=== PATIENT | male | born 1955 | race Caucasian/White ===

== ENCOUNTER 2018-03-25 15:55 | Emergency (ER) | payer OTHER, SELFPAY ==
[2018-03-25 15:59] VITALS: BP 108/65; PULSE 115; RESP 24; TEMP 37.3; O2SAT 98; BMI 27.1
--- NOTE | 2018-03-25 16:08 | DI.RAD.S_ITS ---
PROCEDURE: XR CHEST 2V INDICATIONS: fever, recent fractured ribs on right side. TECHNIQUE: 2 views of the chest were acquired. COMPARISON: None. FINDINGS: Surgical changes and devices: None. Lungs and pleura: No pleural effusions or pneumothorax. Lungs are clear. Mediastinum: Mediastinal contours are normal. Heart size is normal. Bones and chest wall: There are fractures of the right fifth, sixth and seventh ribs. No suspicious bony abnormalities. Soft tissues appear unremarkable. IMPRESSION: 1. Multiple right-sided rib fractures. 2. No pneumothorax or evidence of pneumonia. Dictated by: Serg Coffman M.D. on 03/25/2018 at 16:30 Approved by: Segr Coffman M.D. on 03/25/2018 at 16:32
[2018-03-25] MEDS: SODIUM CHLORIDE 0.9% 1,000 ML 1000 ML IV (16:30)
[2018-03-25 16:38] LABS: Add Manual Diff / Slide Review NO; Basophils Percent Auto 0.5 % (0-2); Eosinophils Percent Auto 0.3 % (2-4); Hematocrit 39.3 % (41-53); Hemoglobin 13.1 g/dL (13.5-17.5); Lymphocytes Percent Auto 7.3 % (25-40); Mean Corpuscular HGB Conc 33.2 % (30-36); Mean Corpuscular Hemoglobin 27.2 PG (26-34); Mean Corpuscular Volume 81.9 fL (80-100); Monocytes Percent Auto 6.8 % (3-14); Neutrophils Absolute Auto 9700 /uL (3000-5900); Neutrophils Percent Auto 85.1 % (50-75); Platelet Count 203 X10^3/uL (150-400); Red Cell Distribution Width 15.1 % (11.6-14.8); White Blood Cell Count 11.4 X10^3/uL (4.5-11.0)
[2018-03-25 16:42] LABS: INR 1.2 (0.9-1.3); Prothrombin Time 12.5 SECONDS (10.1-12.7)
[2018-03-25 16:44] LABS: PTT Partial Thromboplastin Tim 37 SECONDS (26.4-36.2)
[2018-03-25 16:47] LABS: Alanine Aminotransferase 31 IU/L (21-72); Albumin 4.6 g/dL (3.5-5.0); Albumin Globulin Ratio 1.6 (1.0-2.8); Alkaline Phosphatase 80 U/L (38-126); Aspartate Aminotransferase 19 IU/L (17-59); BUN Creatinine Ratio 25.7 (6-22); Bilirubin Total 0.7 mg/dL (0.2-1.3); Calcium 9.7 mg/dL (8.4-10.2); Estimated Glomerular Filt Rate > 60.0 mL/min (>60); Globulin 2.9 g/dL (1.7-4.1); Glucose 129 mg/dL (80-110); HEMOLYSIS < 15 (0-50); Lipase 21 U/L (23-300); Potassium 3.5 mmol/L (3.4-5.1); Sodium 139 mmol/L (137-145); Total Protein 7.5 g/dL (6.3-8.2)
[2018-03-25 16:48] LABS: Lactate (Lactic Acid) 2.2 mmol/L (0.7-2.1)
[2018-03-25] MEDS: HYDROMORPHONE 1 MG INJ IV (17:06)
--- NOTE | 2018-03-25 17:07 | PC.NURSE ---
Unable to scan hydromorphone due to not having the correct concentration
--- NOTE | 2018-03-25 18:25 | PC.NURSE ---
in and out for specimen only per Dr Hardin's request
[2018-03-25] MEDS: cephALEXin 250 MG CAPSULE 500 MG PO (18:32)
[2018-03-25 18:34] VITALS: BP 119/64; PULSE 85; RESP 14; O2SAT 99
[2018-03-25 18:35] VITALS: TEMP 38.3
[2018-03-25 18:37] VITALS: TEMP 38.3
[2018-03-25] MEDS: ACETAMINOPHEN 325 MG TABLET 650 MG PO (18:37)
--- NOTE | 2018-03-25 18:54 | ED_ITS ---
HPI - Fever General Chief Complaint: Fever Stated Complaint: RT RIB PAIN HARD TIME BREATHING,FEVER Time Seen by Provider: 03/25/18 16:10 Source: patient and family Mode of arrival: ambulatory Limitations: no limitations History of Present Illness HPI Narrative: Patient presents to the emergency department today with a chief complaint of a fever as high as 101 at home and increasing pain over known right -sided rib fractures. He denies nausea, vomiting or diarrhea. He has some suprapubic tenderness and complains of urinary frequency, urgency and dysuria. He denies any flank pain. He denies any productive cough or shortness of breath. Related Data Home Medications Medication Instructions Recorded Confirmed Lactobacillus acidophilus 2,000 mmu cells PO BID 03/25/18 03/25/18 calcium carbonate [Calcium 600] 600 mg PO BID 03/25/18 03/25/18 capsaicin 1 applic TOPICAL BID PRN 03/25/18 03/25/18 cholecalciferol (vitamin D3) 2,000 unit PO DAILY 03/25/18 03/25/18 docusate sodium 250 mg PO BID 03/25/18 03/25/18 doxycycline hyclate 100 mg PO Q12H 03/25/18 03/25/18 duloxetine 30 mg PO DAILY 03/25/18 03/25/18 duloxetine 60 mg PO QHS 03/25/18 03/25/18 fluticasone 1 spray INTRANASAL BID 03/25/18 03/25/18 hydrochlorothiazide 12.5 mg PO DAILY 03/25/18 03/25/18 hydrocodone-acetaminophen 1 tab PO BID PRN 03/25/18 03/25/18 ibuprofen 400 mg PO QID PRN 03/25/18 03/25/18 loratadine 10 mg PO DAILY 03/25/18 03/25/18 losartan 50 mg PO DAILY 03/25/18 03/25/18 magnesium oxide 420 mg PO DAILY 03/25/18 03/25/18 meloxicam 7.5 mg PO BID 03/25/18 03/25/18 mesalamine 1.2 g PO TID 03/25/18 03/25/18 metformin 500 mg PO BID 03/25/18 03/25/18 methocarbamol 500 mg PO TID 03/25/18 03/25/18 metoprolol succinate 12.5 mg PO QHS 03/25/18 03/25/18 oxybutynin chloride 10 mg PO DAILY 03/25/18 03/25/18 pravastatin 20 mg PO BEDTIME 03/25/18 03/25/18 pregabalin [Lyrica] 100 mg PO BID 03/25/18 03/25/18 psyllium 1 packet PO QAM PRN 03/25/18 03/25/18 ropinirole 1.5 mg PO QHS 03/25/18 03/25/18 sildenafil 50 mg PO DAILY PRN 03/25/18 03/25/18 tramadol 50 mg PO Q4-6H PRN 03/25/18 03/25/18 Previous Rx's Medication Instructions Recorded cephalexin [Keflex] 500 mg PO QID #10 cap 03/25/18 Allergies Allergy/AdvReac Type Severity Reaction Status Date / Time baclofen Allergy Intermediate Swelling Verified 03/25/18 16:02 of Lip/Tongue/Throat amlodipine AdvReac Intermediate Nausea Verified 03/25/18 16:02 Review of Systems Review of Systems All systems reviewed & are unremarkable except as noted in HPI and below Constitutional Denies chills, Denies fever(s), Denies lethargy and Denies weakness Eyes Denies change in vision, Denies eye discharge, Denies irritation and Denies loss of vision Cardiovascular Denies chest pain, Denies irregular heart rhythm, Denies lightheadedness, Denies palpitations, Denies dyspnea, Denies dyspnea on exertion and Denies orthopnea Respiratory Denies cough, Reports pain on inspiration, Reports pain with cough, Denies dyspnea, Denies dyspnea on exertion and Denies wheezing Gastrointestinal Gastrointestinal: Denies abdominal pain, Denies change in bowel habits, Denies diarrhea, Denies nausea and Denies vomiting Genitourinary Denies hematuria, Denies flank pain, Reports urinary frequency, Reports urinary hesitancy, Reports urinary incontinence and Reports urinary urgency Musculoskeletal Denies back pain, Denies muscle weakness, Denies numbness and Denies tingling Integumentary/Breasts Denies pruritus, Denies erythema, Denies rash and Denies wounds Neurologic Denies confusion, Denies loss of vision, Denies numbness, Denies tingling and Denies weakness Psychiatric Denies anxiety, Denies confusion, Denies depression, Denies homicidal ideation and Denies suicidal ideation Endocrine Denies palpitations Hematologic/Lymphatic Denies easy bruising Allergic/Immunologic Denies wheezing PFSH Medical History Calcium deficiency (Acute) Chronic pain (Acute) Depression (Acute) Erectile dysfunction (Acute) High cholesterol (Acute) History of fractured rib (Acute) Hypertension (Acute) Muscle cramping (Acute) Restless legs (Acute) Stress incontinence, male (Acute) Social History Smoking Status: Former smoker Exam Const General: cooperative and well developed Nutritional Appearance: well nourished Orientation: alert, awake, oriented x3 and not confused [facility] Head: normocephalic and atraumatic Ears: external ears normal and TM's normal bilaterally Nose: external nose normal and No nasal discharge Face and sinus: sinuses nontender, face symmetric, no sinus tenderness and No dry mucous membranes Mouth: oral mucosae normal and moist mucous membranes Teeth and gingiva: dentition normal Throat: tonsils normal and uvula midline Neck Neck: normal visual inspection, trachea midline, No lymphadenopathy, No midline deformity and No JVD Lymphatic: No lymphedema Chest Chest: localized rib tenderness with anteroposterior compression Resp Effort & Inspection: able to speak in complete sentences, no cough and decreased respiratory effort Auscultation: clear to auscultation bilaterally Cardio Rate: regular rate Rhythm: regular rhythm Heart Sounds: no click, no gallops, no murmurs and no rubs Pulses: normal peripheral pulses GI Inspection: non-distended Palpation: soft, no hepatosplenomegaly, No guarding, No pulsatile mass and No tender Auscultation: normal bowel sounds Back/Spine/Pelvis Back: No CVA tenderness Cervical Spine: cervical ROM normal and No pain with cervical ROM Thoracic/Lumbar Spine: thoracic and lumbar spine normal to inspection Skin General: no rashes or lesions noted, No jaundice and No petechiae Neuro General: alert, awake and oriented x3 Cognition: normal cognition Speech: speech normal Gait: normal gait Extrem General: full ROM, no clubbing, cyanosis or edema, no pedal edema and no calf tenderness MDM - Fever Lab Data Result diagrams: 03/25/18 16:20 03/25/18 16:20 Lab Results 03/25/18 03/25/18 03/25/18 Range/Units 16:20 16:20 16:20 WBC 11.4 H (4.5-11.0) X10^3/uL RBC 4.80 (4.5-5.9) X10^6/uL Hgb 13.1 L (13.5-17.5) g/dL Hct 39.3 L (41-53) % MCV 81.9 (80-100) fL MCH 27.2 (26-34) PG MCHC 33.2 (30-36) % RDW 15.1 H (11.6-14.8) % Plt Count 203 (150-400) X10^3/uL Neut % (Auto) 85.1 H (50-75) % Lymph % (Auto) 7.3 L (25-40) % [place] % (Auto) 6.8 (3-14) % Eos % (Auto) 0.3 L (2-4) % Baso % (Auto) 0.5 (0-2) % Neut # (Auto) 9700 H (6781-4600) /uL PT 12.5 (10.1-12.7) SECONDS INR 1.2 (0.9-1.3) APTT 37 H (26.4-36.2) SECONDS Sodium (137-145) mmol/L Potassium (3.4-5.1) mmol/L Chloride (98-107) mmol/L Carbon Dioxide (22-32) mmol/L BUN (9-20) mg/dL Creatinine (0.66-1.25) mg/dL Estimated GFR (>60) mL/min BUN/Creatinine Ratio (6-22) Glucose (80-110) mg/dL Lactate (0.7-2.1) mmol/L Calcium (8.4-10.2) mg/dL Total Bilirubin (0.2-1.3) mg/dL AST (17-59) IU/L ALT (21-72) IU/L Alkaline Phosphatase (38-126) U/L Total Protein (6.3-8.2) g/dL Albumin (3.5-5.0) g/dL Globulin (1.7-4.1) g/dL Albumin/Globulin Ratio (1.0-2.8) Lipase (23-300) U/L Procalcitonin 0.30 (<0.5) ng/mL 03/25/18 03/25/18 Range/Units 16:20 16:20 WBC (4.5-11.0) X10^3/uL RBC (4.5-5.9) X10^6/uL Hgb (13.5-17.5) g/dL Hct (41-53) % MCV (80-100) fL MCH (26-34) PG MCHC (30-36) % RDW (11.6-14.8) % Plt Count (150-400) X10^3/uL Neut % (Auto) (50-75) % Lymph % (Auto) (25-40) % [place] % (Auto) (3-14) % Eos % (Auto) (2-4) % Baso % (Auto) (0-2) % Neut # (Auto) (3005-4064) /uL PT (10.1-12.7) SECONDS INR (0.9-1.3) APTT (26.4-36.2) SECONDS Sodium 139 (137-145) mmol/L Potassium 3.5 (3.4-5.1) mmol/L Chloride 103.0 (98-107) mmol/L Carbon Dioxide 21.0 L (22-32) mmol/L BUN 18.0 (9-20) mg/dL Creatinine 0.70 (0.66-1.25) mg/dL Estimated GFR > 60.0 (>60) mL/min BUN/Creatinine Ratio 25.7 H (6-22) Glucose 129 H (80-110) mg/dL Lactate 2.2 H (0.7-2.1) mmol/L Calcium 9.7 (8.4-10.2) mg/dL Total Bilirubin 0.7 (0.2-1.3) mg/dL AST 19 (17-59) IU/L ALT 31 (21-72) IU/L Alkaline Phosphatase 80 (38-126) U/L Total Protein 7.5 (6.3-8.2) g/dL Albumin 4.6 (3.5-5.0) g/dL Globulin 2.9 (1.7-4.1) g/dL Albumin/Globulin Ratio 1.6 (1.0-2.8) Lipase 21 L (23-300) U/L Procalcitonin (<0.5) ng/mL Imaging Data Chest x-ray: Radiologist's impression: PROCEDURE: XR CHEST 2V INDICATIONS: fever, recent fractured ribs on right side. TECHNIQUE: 2 views of the chest were acquired. COMPARISON: None. FINDINGS: Surgical changes and devices: None. Lungs and pleura: No pleural effusions or pneumothorax. Lungs are clear. Mediastinum: Mediastinal contours are normal. Heart size is normal. Bones and chest wall: There are fractures of the right fifth, sixth and seventh ribs. No suspicious bony abnormalities. Soft tissues appear unremarkable. IMPRESSION: 1. Multiple right-sided rib fractures. 2. No pneumothorax or evidence of pneumonia. Dictated by: Serg Coffman M.D. on 03/25/2018 at 16:30 Approved by: Serg Coffman M.D. on 03/25/2018 at 16:32 Course Orders Ordered: ED Orders 03/25/18 16:08 Chest [XR chest 2V] Stat 03/25/18 16:20 Blood Culture Stat Complete Blood Count AUTO DIFF Stat Comprehensive Metabolic Panel Stat Lactate (Lactic Acid) Stat Lipase Stat Partial Thromboplastin Time Stat Procalcitonin Stat Prothrombin Time INR Stat 03/25/18 18:41 Urine Microscopic Stat Discontinued Medications Acetaminophen (Tylenol) 650 mg PO NOW ONE Stop: 03/25/18 18:37 Last Admin: 03/25/18 18:37 Dose: 650 mg Cephalexin HCl (Keflex) 500 mg PO NOW ONE Stop: 03/25/18 18:29 Last Admin: 03/25/18 18:32 Dose: 500 mg Hydromorphone HCl (Dilaudid) 1 mg IV NOW ONE Stop: 03/25/18 16:56 Last Admin: 03/25/18 17:06 Dose: 1 mg Sodium Chloride (Normal Saline 0.9%) 1,000 mls @ 1,000 mls/hr IV BOLUS ONE Stop: 03/25/18 17:06 Last Infusion: 03/25/18 18:46 Dose: 0 mls/hr Admin: 03/25/18 16:30 Dose: 1,000 mls/hr Last Vital Signs Temp 100.9 F H 03/25/18 18:37 Pulse 85 03/25/18 18:34 Resp 14 03/25/18 18:34 BP 119/64 03/25/18 18:34 Pulse Ox 99 03/25/18 18:34 Discharge Plan Departure Patient Disposition: Home, Self-Care Clinical Impression: Acute UTI Discharge Date/Time: 03/25/18 18:51 Interventions: ED Discharge Assessment Last Done: 03/25/18 18:48 Instructions: DI for Urinary Tract Infection (UTI) Activity Restrictions/Additional Instructions: *You have been diagnosed with [ urinary tract infection ] *What to do: Drink plenty of fluids, take Tylenol or Motrin to help control fever *Take prescription medications as directed *Follow up with your primary care provider in 2-3 days *Return to ER if you should have any new, worsening or concerning symptoms Prescriptions: New cephalexin [Keflex] 500 mg capsule 500 mg PO QID Qty: 10 RF: 0 No Action losartan 50 mg Tablet 50 mg PO DAILY RF: 0 methocarbamol 500 mg Tablet 500 mg PO TID RF: 0 metformin 500 mg Tablet 500 mg PO BID RF: 0 doxycycline hyclate 100 mg Capsule 100 mg PO Q12H RF: 0 ropinirole 1 mg Tablet 1.5 mg PO QHS RF: 0 magnesium oxide 420 mg Tablet 420 mg PO DAILY RF: 0 sildenafil 50 mg Tablet 50 mg PO DAILY PRN (Reason: Erectile Dysfunction) RF: 0 oxybutynin chloride 10 mg Tablet Extended Release 24hr 10 mg PO DAILY RF: 0 hydrocodone-acetaminophen 5-325 mg Tablet 1 tab PO BID PRN (Reason: Pain (Scale Score 4-6)) RF: 0 psyllium Packet 1 packet PO QAM PRN (Reason: Constipation) RF: 0 tramadol 50 mg Tablet 50 mg PO Q4-6H PRN (Reason: Pain (Scale Score 4-6)) RF: 0 meloxicam 7.5 mg Tablet 7.5 mg PO BID RF: 0 calcium carbonate [Calcium 600] 600 mg calcium (1,500 mg) Tablet 600 mg PO BID RF: 0 ibuprofen 400 mg Tablet 400 mg PO QID PRN (Reason: Pain (Scale Score 1-3)) RF: 0 hydrochlorothiazide 12.5 mg Capsule 12.5 mg PO DAILY RF: 0 pravastatin 20 mg Tablet 20 mg PO BEDTIME RF: 0 metoprolol succinate 25 mg Tablet Extended Release 24 Hr 12.5 mg PO QHS RF: 0 docusate sodium 250 mg Capsule 250 mg PO BID RF: 0 fluticasone 50 mcg/actuation [place],Suspension 1 spray INTRANASAL BID RF: 0 duloxetine 30 mg Capsule,Delayed Release(Dr/Ec) 30 mg PO DAILY RF: 0 duloxetine 60 mg Capsule,Delayed Release(Dr/Ec) 60 mg PO QHS RF: 0 capsaicin 0.1 % Cream 1 applic TOPICAL BID PRN (Reason: Pain, Mild) RF: 0 pregabalin [Lyrica] 100 mg Capsule 100 mg PO BID RF: 0 mesalamine 1.2 gram Tablet,Delayed Release (Dr/Ec) 1.2 g PO TID RF: 0 cholecalciferol (vitamin D3) 2,000 unit Capsule 2,000 unit PO DAILY RF: 0 loratadine 10 mg Capsule 10 mg PO DAILY RF: 0 Lactobacillus acidophilus 1 billion cell Capsule 2,000 mmu cells PO BID RF: 0
[2018-03-25 18:55] LABS: Bacteria Urine None Seen; RBC Urine >100/HPF (0-5/HPF); Squamous Epithelial Cell Urine 1-5 /HPF; WBC Urine 5-10/HPF (0-5/HPF)
[2018-03-25 18:56] LABS: Culture Indicated Urine Specimen Cultured
[2018-03-25 20:28] LABS: Reflexed Lactate in 2 Hours Y
== END 2018-03-25 18:51 | disposition home or self-care (01) ==
PROVIDERS: Emergency Provider Emergency Medicine
DX: N39.0 Urinary tract infection, site not specified (principal)
CPT/HCPCS: 51798; 71046; 80053; 81003; 81015; 83605; 83690; 84145; 85025; 85610; 85730; 87040; 87086; 93005; 96361; 96374; 99284; J1170

== ENCOUNTER 2021-11-23 11:46 | Emergency (ER) | payer OTHER, SELFPAY ==
[2021-11-23 11:54] VITALS: BP 155/74; PULSE 69; RESP 18; TEMP 36.1; O2SAT 98; BMI 31.1
--- NOTE | 2021-11-23 13:02 | DI.CT.S_ITS ---
PROCEDURE: CT KIDNEY URETER BLADDER (KUB) INDICATIONS: flank pain, nephrolithiasis TECHNIQUE: Axial sections were acquired from the lung bases to the pubic symphysis. Coronal and sagittal reformats were performed. For radiation dose reduction, the following was used: automated exposure control, adjustment of mA and/or kV according to patient size. COMPARISON: None. FINDINGS: Image quality: Excellent. Lung bases: Unremarkable. Heart: No significant findings. URINARY: Right Kidney: Mild renal atrophy is present. Perinephric stranding is noted. Exophytic renal cysts are present the largest posteriorly measuring 2 cm. There is a lateral inferior renal pole 4 mm linear calcification is present within the superior pole. There is no obstruction. focus of increased echogenicity measuring 7 mm. Right Ureter: No hydroureter. However, it is noted that there is proximal and mid ureteral stranding. Left Kidney: Left kidney demonstrates atrophy with perinephric stranding. Exophytic renal cysts are present all low-attenuation the largest measuring 2.3 cm. Left Ureter: No hydroureter. Bladder: Normal wall thickness. Punctate stone is noted in the posterior dependent bladder. ABDOMEN: Liver: Liver is enlarged measuring 20 cm with diffuse fatty infiltration. Gallbladder: The gallbladder has been removed. Biliary ducts: Unremarkable. Pancreas: Unremarkable. Spleen: Unremarkable. Adrenal Glands: Unremarkable. Stomach and Bowel: Stomach, small bowel loops, and colon are unremarkable. Scattered mild colonic diverticula are present. Peritoneum: No abnormal intraperitoneal fluid. No free air. Ventral Wall: No hernia. Abdominal Nodes: No enlarged retroperitoneal or mesenteric lymph nodes. Vessels: Aorta and inferior vena cava are normal in size. PELVIS: Pelvic Organs: Unremarkable. Pelvic Nodes: Unremarkable. Miscellaneous: Bilateral fat containing inguinal hernias are present. Bones: Old right rib fractures are present. Lower lumbar fusion is present. IMPRESSION: 1. No renal obstruction. 2. No ureteral obstruction. Punctate calcification is noted within the dependent bladder. It is noted that there is right perinephric ureteral stranding possibly related to recently passed stone. 3. Nonobstructing right renal calculus. 4. Bilateral simple renal cysts. 5. Exophytic hyperdense exophytic focus is noted on the left suggestive of hyperdense cyst. However, no priors are available for comparison. Ultrasound may be obtained for further evaluation. Dictated by: Celi Prieto M.D. on 11/23/2021 at 14:40 Approved by: Celi Prieto M.D. on 11/23/2021 at 14:48
[2021-11-23 13:08] LABS: Bacteria Urine None Seen; Culture Indicated Urine Cult Not Indicated; Mucus Urine 2+ (Negative); RBC Urine 10-30/HPF (0-5/HPF); Squamous Epithelial Cell Urine 0-1 /HPF (0-5/HPF); WBC Urine 0-1/HPF (0-5/HPF)
[2021-11-23] MEDS: KETOROLAC 30 MG/ML VIAL 15 MG IM (14:00)
[2021-11-23] MEDS: TAMSULOSIN 0.4 MG CAPSULE PO (14:00)
[2021-11-23 14:42] VITALS: BP 117/65; PULSE 95; O2SAT 97
[2021-11-23 15:00] VITALS: PULSE 78; O2SAT 96
--- NOTE | 2021-11-23 15:03 | ED_ITS ---
HPI - Male Genitourinary <Jessica Ibrahim, [facility] - Last Filed: 11/23/21 20:46> General Chief complaint: Urogenital-Male Stated complaint: Thinks kidney stones Time Seen by Provider: 11/23/21 13:01 Source: patient Mode of arrival: Wheelchair History of Present Illness HPI Narrative: 66-year-old male presents to the emergency department for right-sided flank pain which started at 6:00 a.m. this morning. Patient has a history of kidney stones in the past, at least 4 times. He sees a urologist Dr. Chatman in while a while, patient lives in [place] and traveled here last night to visit his son. He thinks that the long drive is the trigger for his kidney stone. He admits to possible dehydration over the last 24 hours due to the long drive. Patient denies having a fever, he does endorse nausea and vomiting x1 this morning due to the pain. He denies any weakness, dizziness, worsening of his symptoms, he was given Toradol and Flomax before my interview with him and now he reports that his pain is much better and he denies the need for any other pain medicine at this time. He also denies any nausea or vomiting since his medication administration. Related Data Home Medications Medication Instructions Recorded Confirmed Lactobacillus acidophilus 1 2,000 mmu cells PO BID 03/25/18 03/25/18 billion cell capsule calcium carbonate 600 mg calcium 600 mg PO BID 03/25/18 03/25/18 (1,500 mg) tablet (Calcium) capsaicin 0.1 % topical cream 1 applic TOPICAL BID PRN 03/25/18 03/25/18 cholecalciferol (vitamin D3) 50 2,000 unit PO DAILY 03/25/18 03/25/18 mcg (2,000 unit) capsule docusate sodium 250 mg capsule 250 mg PO BID 03/25/18 03/25/18 doxycycline hyclate 100 mg capsule 100 mg PO Q12H 03/25/18 03/25/18 duloxetine 30 mg capsule,delayed 30 mg PO DAILY 03/25/18 03/25/18 release duloxetine 60 mg capsule,delayed 60 mg PO QHS 03/25/18 03/25/18 release fluticasone propionate 50 1 spray INTRANASAL BID 03/25/18 03/25/18 mcg/actuation nasal spray,suspension hydrochlorothiazide 12.5 mg capsule 12.5 mg PO DAILY 03/25/18 03/25/18 hydrocodone 5 mg-acetaminophen 325 1 tab PO BID PRN 03/25/18 03/25/18 mg tablet ibuprofen 400 mg tablet 400 mg PO QID PRN 03/25/18 03/25/18 loratadine 10 mg capsule 10 mg PO DAILY 03/25/18 03/25/18 losartan 50 mg tablet 50 mg PO DAILY 03/25/18 03/25/18 magnesium oxide 420 mg tablet 420 mg PO DAILY 03/25/18 03/25/18 meloxicam 7.5 mg tablet 7.5 mg PO BID 03/25/18 03/25/18 mesalamine 1.2 gram tablet,delayed 1.2 g PO TID 03/25/18 03/25/18 release metformin 500 mg tablet 500 mg PO BID 03/25/18 03/25/18 methocarbamol 500 mg tablet 500 mg PO TID 03/25/18 03/25/18 metoprolol succinate 25 mg 12.5 mg PO QHS 03/25/18 03/25/18 tablet,extended release 24 hr oxybutynin chloride 10 mg 10 mg PO DAILY 03/25/18 03/25/18 tablet,extended release 24 hr pravastatin 20 mg tablet 20 mg PO BEDTIME 03/25/18 03/25/18 pregabalin 100 mg capsule (Lyrica) 100 mg PO BID 03/25/18 03/25/18 psyllium 1 packet PO QAM PRN 03/25/18 03/25/18 ropinirole 1 mg tablet 1.5 mg PO QHS 03/25/18 03/25/18 sildenafil 50 mg tablet 50 mg PO DAILY PRN 03/25/18 03/25/18 tramadol 50 mg tablet 50 mg PO Q4-6H PRN 03/25/18 03/25/18 Previous Rx's Medication Instructions Recorded cephalexin 500 mg capsule (Keflex) 500 mg PO QID #10 cap 03/25/18 tamsulosin 0.4 mg capsule (Flomax) 0.4 mg PO DAILY 10 Days #10 cap 11/23/21 Allergies Allergy/AdvReac Type Severity Reaction Status Date / Time baclofen Allergy Intermediate Swelling Verified 11/23/21 11:56 of Lip/Tongue/Throat amlodipine AdvReac Intermediate Nausea Verified 11/23/21 11:56 Review of Systems <GLORIA Mueller - Last Filed: 11/23/21 20:46> Review of Systems Narrative: General: denies fever, chills Head/Neck: denies headache, neck pain Eyes: denies visual changes, eye pain Cardio: denies chest pain, palpitations Respiratory: denies shortness of breath, cough GI: denies abdominal pain, nausea, vomiting, or diarrhea : denies dysuria, hematuria, endorses right flank pain which is the worst pain he has ever experienced MSK: denies joint pain, muscle weakness Skin: denies rash, itching Neuro: denies numbness, tingling Patient History <GLORIA Mueller - Last Filed: 11/23/21 20:46> Medical History Calcium deficiency Chronic pain Depression Erectile dysfunction High cholesterol History of fractured rib Hypertension Muscle cramping Restless legs Stress incontinence, male Social History Smoking Status: Former smoker Smoking Status: Former smoker alcohol intake frequency: holidays/special occasions only Substance Use Type: does not use Exam <GLORIA Mueller - Last Filed: 11/23/21 20:46> Narrative Exam Narrative: Independently reviewed vitals signs and nursing notes. General: Awake, alert, nontoxic, no cardiorespiratory distress Head/Neck: Atraumatic, neck full range of motion Eyes: EOMI, conjunctiva normal Nose: nares patent, no rhinorrhea Mouth/Throat: moist mucus membranes, posterior pharynx normal, no oral lesions Cardio: Regular rate and rhythm, no peripheral edema Respiratory: respirations unlabored without wheezing, stridor, or rales. No retractions. GI: Abdomen soft, nontender MSK: Moves all extremities, neurovascularly intact Skin: Normal capillary refill, no rash Neuro: Normal speech and cognition, normal gait Initial Vital Signs Initial Vital Signs: Vital Signs Temperature 97.0 F L 11/23/21 11:54 Pulse Rate 69 11/23/21 11:54 Respiratory Rate 18 11/23/21 11:54 Blood Pressure 155/74 H 11/23/21 11:54 Pulse Oximetry 98 11/23/21 11:54 <Konstantin Burrell MD - Last Filed: 11/28/21 12:30> Initial Vital Signs Initial Vital Signs: Vital Signs Temperature 97.0 F L 11/23/21 11:54 Pulse Rate 69 11/23/21 11:54 Respiratory Rate 18 11/23/21 11:54 Blood Pressure 155/74 H 11/23/21 11:54 Pulse Oximetry 98 11/23/21 11:54 Course <GLORIA Mueller - Last Filed: 11/23/21 20:46> Orders Ordered: Discontinued Medications Ketorolac Tromethamine (Ketorolac 30 Mg/Ml Vial) 15 mg IM NOW ONE Stop: 11/23/21 13:03 Last Admin: 11/23/21 14:00 Dose: 15 mg Documented by: KASI Tamsulosin HCl (Tamsulosin 0.4 Mg Capsule) 0.4 mg PO NOW ONE Stop: 11/23/21 13:03 Last Admin: 11/23/21 14:00 Dose: 0.4 mg Documented by: KASI Vital Signs Vital signs: Vital Signs - 8 hr 11/23/21 14:42 11/23/21 15:00 11/23/21 15:08 Pulse Rate 95 H 78 76 Blood Pressure 117/65 111/67 Pulse Oximetry 97 96 96 <Konstantin Burrell MD - Last Filed: 11/28/21 12:30> Orders Ordered: Discontinued Medications Ketorolac Tromethamine (Ketorolac 30 Mg/Ml Vial) 15 mg IM NOW ONE Stop: 11/23/21 13:03 Last Admin: 11/23/21 14:00 Dose: 15 mg Documented by: KASI Tamsulosin HCl (Tamsulosin 0.4 Mg Capsule) 0.4 mg PO NOW ONE Stop: 11/23/21 13:03 Last Admin: 11/23/21 14:00 Dose: 0.4 mg Documented by: KASI Vital Signs Vital signs: Vital Signs - 8 hr 11/23/21 14:42 11/23/21 15:00 11/23/21 15:08 Pulse Rate 95 H 78 76 Blood Pressure 117/65 111/67 Pulse Oximetry 97 96 96 MDM - Male Genitourinary <GLORIA Mueller - Last Filed: 11/23/21 20:46> Lab Data Labs: Lab Results 11/23/21 Range/Units 12:54 Urine RBC 10-30/hpf H (0-5/HPF) Urine WBC 0-1/hpf (0-5/HPF) Ur Squamous Epith Cells 0-1 /hpf (0-5/HPF) Urine Bacteria None seen (None) Urine Mucus 2+ H (Negative) Ur Culture Indicated? Cult not indicated Urine Dip Bedside Urine Glucose Negative Bedside Urine Bilirubin - Negative Urine Specific [place] 1.030 Bedside Urine Occult Blood ++ Bedside Urine pH 6.0 Bedside Urine Protein +/- 15 Bedside Urine Urobilinogen 0.2 Bedside Urine Nitrite - Negative Bedside Urine Leukocytes - Negative Esterase Imaging Data CT KUB: Radiologist's Impression: PROCEDURE:? CT KIDNEY URETER BLADDER (KUB) ? INDICATIONS:? flank pain, nephrolithiasis ? TECHNIQUE:? Axial sections were acquired from the lung bases to the pubic symphysis.? Coronal and sagittal reformats were performed.? For radiation dose reduction, the following was used: ?automated exposure control, adjustment of mA and/or kV according to patient size.? ? COMPARISON:? None. ? FINDINGS:? Image quality:? Excellent.? ? Lung bases:? Unremarkable.? ? Heart:? No significant findings. ? URINARY: Right Kidney:? Mild renal atrophy is present.? Perinephric stranding is noted.? Exophytic renal cysts are present the largest posteriorly measuring 2 cm.? There is a lateral inferior renal pole 4 mm linear calcification is present within the superior pole.? There is no obstruction.? focus of increased echogenicity measuring 7 mm. Right Ureter:? No hydroureter.? However, it is noted that there is proximal and mid ureteral stranding. ? Left Kidney:? Left kidney demonstrates atrophy with perinephric stranding.? Exophytic renal cysts are present all low-attenuation the largest measuring 2.3 cm. Left Ureter:? No hydroureter.? ? Bladder:? Normal wall thickness.? Punctate stone is noted in the posterior dependent bladder. ? ABDOMEN: Liver:? Liver is enlarged measuring 20 cm with diffuse fatty infiltration.? Gallbladder:? The gallbladder has been removed. Biliary ducts:? Unremarkable.? ? Pancreas:? Unremarkable.? ? Spleen:? Unremarkable.? ? Adrenal Glands:? Unremarkable.? ? ? Stomach and Bowel:? Stomach, small bowel loops, and colon are unremarkable.? Scattered mild colonic diverticula are present. Peritoneum:? No abnormal intraperitoneal fluid.? No free air.? ? Ventral Wall: ? No hernia.? Abdominal Nodes:? No enlarged retroperitoneal or mesenteric lymph nodes.? Vessels:? Aorta and inferior vena cava are normal in size.? ? PELVIS: Pelvic Organs:? Unremarkable.? ? Pelvic Nodes: Unremarkable. Miscellaneous:? Bilateral fat containing inguinal hernias are present. ? Bones:? Old right rib fractures are present.? Lower lumbar fusion is present. ? IMPRESSION:? ? 1. No renal obstruction. ? 2. No ureteral obstruction.? Punctate calcification is noted within the dependent bladder.? It is noted that there is right perinephric ureteral stranding possibly related to recently passed stone. ? 3. Nonobstructing right renal calculus. ? 4. Bilateral simple renal cysts. ? 5. Exophytic hyperdense exophytic focus is noted on the left suggestive of hyperdense cyst.? However, no priors are available for comparison.? Ultrasound may be obtained for further evaluation.? ? ? Dictated by: Celi Prieto M.D. on 11/23/2021 at 14:40 ? ? Approved by: Celi Prieto M.D. on 11/23/2021 at 14:48 ? MDM Narrative Medical decision making narrative: Male with history of kidney stones presents to the emergency department complaining of right-sided flank pain since this morning at 5:00 a.m.. Patient was found to have punctate calcification noted within the dependent bladder and some right perinephric ureter stranding possibly related to a recently passed stone, a nonobstructing right renal calculus and bilateral simple renal cysts without any ureteral or renal obstruction. Patient was given Toradol and Flomax which brought his pain down to a 1/10. He denies any need for any additional pain medicine but excepted a prescription for Flomax. Patient understands to hydrate as best as possible for the next few days and to return to the emergency department if he has any worsening of his symptoms. Patient has a urologist back in [place] and he will follow up with him when he returns from his trip. Patient is appropriate and amenable to discharge home. Vital signs are stable on repeat examination is unremarkable. Patient has been informed of results. Patient has been given strict return to ER precautions for any new or worsening symptoms. Patient understands to follow up closely with outpatient providers as instructed. Patient understands plan and agrees to discharge home. All questions and concerns answered at this time. <Konstantin Burrell MD - Last Filed: 11/28/21 12:30> Lab Data Labs: Lab Results 11/23/21 Range/Units 12:54 Urine RBC 10-30/hpf H (0-5/HPF) Urine WBC 0-1/hpf (0-5/HPF) Ur Squamous Epith Cells 0-1 /hpf (0-5/HPF) Urine Bacteria None seen (None) Urine Mucus 2+ H (Negative) Ur Culture Indicated? Cult not indicated Urine Dip Bedside Urine Glucose Negative Bedside Urine Bilirubin - Negative Urine Specific [place] 1.030 Bedside Urine Occult Blood ++ Bedside Urine pH 6.0 Bedside Urine Protein +/- 15 Bedside Urine Urobilinogen 0.2 Bedside Urine Nitrite - Negative Bedside Urine Leukocytes - Negative Esterase Discharge Plan Departure Patient Disposition: Home Clinical Impression: Bladder calculus Instructions: DI for Kidney Stones Activity Restrictions/Additional Instructions: *You have been diagnosed with passing a kidney stone into your bladder. Please see your CT results below. It appears that you have 3 stones, 2 are still in your kidney they are 4 mm and 7 mm approximately, and the 1 in your bladder does not have a stone size noted. Please take the Flomax for the next 10 days, please stay hydrated and then follow-up with your urologist when you get home. He may take anti-inflammatories like ibuprofen for the next few days which will help with your pain. Please return to the emergency department if you have any worsening of your symptoms we will be happy to see you again. I was unable to find a Dr. Smith but there is a Dr. Austin Chatman who is a urologist while a while a and works at [facility] [employer] [facility]. [facility] - [address],?[place]?[address] Thank you for trusting us with your care, and I hope this does not happen again. *What to do: *Please continue to take your regular medications as directed. [ x] New medication prescriptions sent to your pharmacy: [ [facility]] [ ] New medication written as a paper prescription [ ] No new medications given *Please follow up with your primary care provider in 2-3 days, call for an appointment. Let them know you were seen in the Emergency Department and that we ask that you be seen in follow up. We will electronically transmit a record of today's note if your PCP is in our system *If you do not have a primary care provider please contact the [facility] Resource line at [phone]. They will ask some questions about your medical history and help get you set up with a doctor in the community. *Return to Emergency Department if you should have any new, worsening or concerning symptoms, such as [fever greater than 101F, chills, worsening pain, persistent vomiting or other bothersome symptoms] PROCEDURE:? CT KIDNEY URETER BLADDER (KUB) ? INDICATIONS:? flank pain, nephrolithiasis ? TECHNIQUE:? Axial sections were acquired from the lung bases to the pubic symphysis.? Coronal and sagittal reformats were performed.? For radiation dose reduction, the following was used: ?automated exposure control, adjustment of mA and/or kV according to patient size.? ? COMPARISON:? None. ? FINDINGS:? Image quality:? Excellent.? ? Lung bases:? Unremarkable.? ? Heart:? No significant findings. ? URINARY: Right Kidney:? Mild renal atrophy is present.? Perinephric stranding is noted.? Exophytic renal cysts are present the largest posteriorly measuring 2 cm.? There is a lateral inferior renal pole 4 mm linear calcification is present within the superior pole.? There is no obstruction.? focus of increased echogenicity measuring 7 mm. Right Ureter:? No hydroureter.? However, it is noted that there is proximal and mid ureteral stranding. ? Left Kidney:? Left kidney demonstrates atrophy with perinephric stranding.? Exophytic renal cysts are present all low-attenuation the largest measuring 2.3 cm. Left Ureter:? No hydroureter.? ? Bladder:? Normal wall thickness.? Punctate stone is noted in the posterior dependent bladder. ? ABDOMEN: Liver:? Liver is enlarged measuring 20 cm with diffuse fatty infiltration.? Gallbladder:? The gallbladder has been removed. Biliary ducts:? Unremarkable.? ? Pancreas:? Unremarkable.? ? Spleen:? Unremarkable.? ? Adrenal Glands:? Unremarkable.? ? ? Stomach and Bowel:? Stomach, small bowel loops, and colon are unremarkable.? Sca ttered mild colonic diverticula are present. Peritoneum:? No abnormal intraperitoneal fluid.? No free air.? ? Ventral Wall: ? No hernia.? Abdominal Nodes:? No enlarged retroperitoneal or mesenteric lymph nodes.? Vessels:? Aorta and inferior vena cava are normal in size.? ? PELVIS: Pelvic Organs:? Unremarkable.? ? Pelvic Nodes: Unremarkable. Miscellaneous:? Bilateral fat containing inguinal hernias are present. ? Bones:? Old right rib fractures are present.? Lower lumbar fusion is present. ? IMPRESSION:? ? 1. No renal obstruction. ? 2. No ureteral obstruction.? Punctate calcification is noted within the dependent bladder.? It is noted that there is right perinephric ureteral stranding possibly related to recently passed stone. ? 3. Nonobstructing right renal calculus. ? 4. Bilateral simple renal cysts. ? 5. Exophytic hyperdense exophytic focus is noted on the left suggestive of hyperdense cyst.? However, no priors are available for comparison.? Ultrasound may be obtained for further evaluation.? ? ? Dictated by: Celi Prieto M.D. on 11/23/2021 at 14:40 ? ? Approved by: Celi Prieto M.D. on 11/23/2021 at 14:48 ? Prescriptions: New tamsulosin [Flomax] 0.4 mg capsule 0.4 mg PO DAILY 10 Days Qty: 10 0RF No Action losartan 50 mg Tablet 50 mg PO DAILY 0RF methocarbamol 500 mg Tablet 500 mg PO TID 0RF metformin 500 mg Tablet 500 mg PO BID 0RF doxycycline hyclate 100 mg Capsule 100 mg PO Q12H 0RF ropinirole 1 mg Tablet 1.5 mg PO QHS 0RF magnesium oxide 420 mg Tablet 420 mg PO DAILY 0RF sildenafil 50 mg Tablet 50 mg PO DAILY PRN (Reason: Erectile Dysfunction) 0RF oxybutynin chloride 10 mg Tablet Extended Release 24hr 10 mg PO DAILY 0RF hydrocodone-acetaminophen 5-325 mg Tablet 1 tab PO BID PRN (Reason: Pain (Scale Score 4-6)) 0RF psyllium Packet 1 packet PO QAM PRN (Reason: Constipation) 0RF tramadol 50 mg Tablet 50 mg PO Q4-6H PRN (Reason: Pain (Scale Score 4-6)) 0RF meloxicam 7.5 mg Tablet 7.5 mg PO BID 0RF calcium carbonate [Calcium 600] 600 mg calcium (1,500 mg) Tablet 600 mg PO BID 0RF ibuprofen 400 mg Tablet 400 mg PO QID PRN (Reason: Pain (Scale Score 1-3)) 0RF hydrochlorothiazide 12.5 mg Capsule 12.5 mg PO DAILY 0RF pravastatin 20 mg Tablet 20 mg PO BEDTIME 0RF metoprolol succinate 25 mg Tablet Extended Release 24 Hr 12.5 mg PO QHS 0RF docusate sodium 250 mg Capsule 250 mg PO BID 0RF fluticasone propionate 50 mcg/actuation [place],Suspension 1 spray INTRANASAL BID 0RF duloxetine 30 mg Capsule,Delayed Release(Dr/Ec) 30 mg PO DAILY 0RF duloxetine 60 mg Capsule,Delayed Release(Dr/Ec) 60 mg PO QHS 0RF capsaicin 0.1 % Cream 1 applic TOPICAL BID PRN (Reason: Pain, Mild) 0RF pregabalin [Lyrica] 100 mg Capsule 100 mg PO BID 0RF mesalamine 1.2 gram Tablet,Delayed Release (Dr/Ec) 1.2 g PO TID 0RF cholecalciferol (vitamin D3) 2,000 unit Capsule 2,000 unit PO DAILY 0RF loratadine 10 mg Capsule 10 mg PO DAILY 0RF Lactobacillus acidophilus 1 billion cell Capsule 2,000 mmu cells PO BID 0RF cephalexin [Keflex] 500 mg capsule 500 mg PO QID Qty: 10 0RF <Konstantin Burrell MD - Last Filed: 11/28/21 12:30> Cosign ED Attending Cosignature Attestation: I was immediately available in the department for consultation. This documentation has been reviewed and I agree with assessment and plan. Supervised by Konstantin Burrell MD
[2021-11-23 15:08] VITALS: BP 111/67; PULSE 76; O2SAT 96
== END 2021-11-23 15:26 | disposition home or self-care (01) ==
PROVIDERS: Emergency Medicine; Emergency Provider Nurse Practitioner Critical Care Medicine
DX: N21.0 Calculus in bladder (principal); N20.0 Calculus of kidney
CPT/HCPCS: 74176; 81003; 81015; 96372; 99283; 99284; J1885